=== PATIENT | male | born 1960 | race Two or more races ===

== ENCOUNTER → 2018-02-27 | Outpatient (CLI) | payer OTHER ==
[2018-02-27 16:13] LABS: HCT 42.5 % (39.0-53.0); HGB 14.5 gm/dL (13.0-17.5); MCH 28.7 pg (25.0-35.0); MCHC 34.1 g/dL (31.0-37.0); Mean Platelet Volume 8.8; Platelet Count 160 k/uL (150-450); RBC 5.05 m/uL (4.30-5.90); RDW 13.1 % (11.5-15.5)
[2018-02-27 16:32] LABS: Potassium 4.3 mmol/L (3.5-5.1)
== END | disposition home or self-care (01) ==
LOC: LABPAT 15:39
PROVIDERS: ATTEND Internal Medicine Interventional Cardiology
DX: Z01.812 Encounter for preprocedural laboratory examination (principal); I25.10 Atherosclerotic heart disease of native coronary artery without angina pectoris
CPT/HCPCS: 36415; 80051; 82565; 84520; 85027

== ENCOUNTER 2018-03-14 09:21 | Day surgery (SDC) | payer OTHER ==
[2018-03-05 16:16] VITALS: BMI 27.9
[~2018-03-14 09:21] MED LIST: ALPRAZolam 0.25 MG TAB PO PRN; ALPRAZolam 0.5 MG TAB PO PRN; ASPIRIN 325 MG TAB PO STA; ATORVASTATIN 80 MG TAB PO STA; NITROGLYCERIN SL TABS 0.4 MG TAB SUBLINGUAL PRN; SODIUM CHLORIDE 0.9% 1,000 ML in EMPTY BAG 1 BAG IV ONE
[2018-03-14 09:48] VITALS: PULSE 60; TEMP 97.4
[2018-03-14] MEDS ORDERED: LIDOCAINE 2% INJ 20 MG/ML (20 ML MDV) ONE (10:10)
[2018-03-14] MEDS ORDERED: VERAPAMIL 2.5 MG/ML 2 ML AMP ONE (10:10)
[2018-03-14] MEDS ORDERED: fentaNYL (PF) 50 MCG/ML 2 ML AMP ONE (10:11)
[2018-03-14] MEDS ORDERED: SODIUM CHLORIDE 0.9% 1,000 ML IV ONE (10:20)
[2018-03-14] MEDS ORDERED: fentaNYL (PF) 50 MCG/ML 2 ML AMP IV ONE (10:31)
[2018-03-14] MEDS ORDERED: LIDOCAINE 2% INJ 20 MG/ML SQ ONE (10:36)
[2018-03-14] MEDS ORDERED: VERAPAMIL SYRINGE (5 MG/10 ML) INTRAARTER ONE (10:37)
[2018-03-14] MEDS ORDERED: MIDAZOLAM 2 MG/2 ML VIAL ONE (10:44)
[2018-03-14] MEDS ORDERED: MIDAZOLAM 2 MG/2 ML VIAL IV ONE (10:45)
[2018-03-14] MEDS ORDERED: HEPARIN SODIUM 1,000 UN/ML (10ML VL) ONE (10:46)
[2018-03-14] MEDS ORDERED: HEPARIN SODIUM 1,000 UN/ML (10ML VL) IV ONE (10:47)
[2018-03-14] MEDS ORDERED: IOPAMIDOL-370 125ML BTL INJ ONE (10:54)
[2018-03-14] MEDS ORDERED: RX INFO: IV CONTRAST WAS GIVEN 1 EACH MISC MISCELLANE PRN (11:05)
[2018-03-14] MEDS ORDERED: SODIUM CHLORIDE 0.9% 1,000 ML IV SCH (11:15)
[2018-03-14 12:09] VITALS: RESP 18
--- NOTE | 2018-03-14 14:25 | CC ---
CARDIAC CATHETERIZATION REPORT Mr. Fowler is a 57-year-old male with known history of hypertension, hyperlipidemia, history of coronary artery disease, status post percutaneous revascularization proximal LAD in 2015, who recently had mild chest discomfort and underwent a myocardial perfusion imaging that revealed reversible inferoapical wall defect. In view of that recommendation was made regarding cardiac catheterization. The procedure, risks and complication were discussed with the patient who is in full understanding and agreement. PROCEDURE: Patient was brought to the [facility] in a fasting semi-sedated state after receiving fentanyl and Benadryl. He was draped and prepped in conventional fashion. He had fentanyl and Benadryl and after achieving moderate conscious sedated state, using Xylocaine anesthesia and Seldinger technique, a 6-Chadian sheath was introduced in the right radial artery. Selective right and left angiography performed using 5-Chadian 3.5 bend right and left Saurav catheter. Multiple views of the coronary artery including hemiaxial views were obtained. Following that, catheter and sheath were removed. Hemostasis was obtained with deployment of a TR band. There was no immediate complication. The patient was returned to his room in stable condition. Of note, patient received 5000 units units of intravenous heparin as well as intra-arterial verapamil. FINDINGS: 1. LEFT MAIN: This is a short size vessel, bifurcating into left circumflex, left anterior descending artery, left main coronary artery has no evidence of high-grade stenosis. 2. LEFT ANTERIOR DESCENDING ARTERY: This is a large-sized vessel reaching to the apex. It tapers down in the distal thirds giving rise to a moderately-sized diagonal branch in mid segment. The stented segment and the proximal LAD is patent. There is a 10%-20% plaque proximal toward the ostium. There is mild disease in the mid LAD of 10% - 20% without any evidence of high-grade stenosis. 3. LEFT CIRCUMFLEX: This is a small nondominant vessel giving rise to 2 obtuse marginal branches. The left circumflex has mild intimal disease without any evidence of high-grade stenosis. 4. RIGHT CORONARY ARTERY: This is a large dominant vessel, bifurcating distally into postoperative segment and branches. The right coronary artery PDA reaches towards the inferoapical wall. The right coronary artery throughout its course has diffuse intimal disease of 20% - 30% without any evidence of high-grade stenosis. 5. LEFT VENTRICULOGRAM: Left ventriculogram was not performed. CONCLUSION: 1. No evidence of restenosis in the stented LAD. 2. Mild triple-vessel coronary artery disease. RECOMMENDATION: In view of finding anatomy, I have recommended continue medical therapy with aggressive risk modifications being initiated. Those final recommendation were discussed with the patient and his family who are in full understanding and agreement. Duration of the procedure is 19 minutes. MMCOLLIN / DEBN: [id number] /
--- NOTE | 2018-03-14 14:28 | LTR ---
DATE OF SERVICE: 03/14/2018 RE: Darren Fowler Dear Dr. León; I had the pleasure to perform cardiac catheterization on Mr. Fowler at [facility] on March 14, 2018 and a full copy of the procedure note will be forwarded to you. In brief, he was found to have a patent stent to the LAD with mild diffuse disease. In view of that, I have recommended continue medical therapy with the aggressive risk modifications being initiated. Thank you again for allowing me to participate in this patient's care. Please feel free to call for any questions. Sincerely yours, MD SKIP CamarenaL / DEBN: [id number] /
[2018-03-14 15:22] VITALS: BP 122/76
[2018-03-14] MEDS ORDERED: METOPROLOL TARTRATE 25 MG TAB PO SCH (21:00)
[2018-03-15] MEDS ORDERED: PANTOPRAZOLE 40 MG TABLET PO SCH (07:30)
[2018-03-15] MEDS ORDERED: ATORVASTATIN 80 MG TAB PO SCH (09:00)
[2018-03-15] MEDS ORDERED: amLODIPine 5 MG TAB PO SCH (09:00)
[2018-03-15] MEDS ORDERED: ASPIRIN 81 MG PO SCH (09:00)
[2018-03-15] MEDS ORDERED: CLOPIDOGREL 75 MG TAB PO SCH (09:00)
== END 2018-03-14 15:49 | disposition home or self-care (01) ==
LOC: CATHCVL 09:21
PROVIDERS: ATTEND Internal Medicine Interventional Cardiology
DX: I25.10 Atherosclerotic heart disease of native coronary artery without angina pectoris (principal); I10 Essential (primary) hypertension; E78.2 Mixed hyperlipidemia; Z95.5 Presence of coronary angioplasty implant and graft; Z79.02 Long term (current) use of antithrombotics/antiplatelets; Z79.82 Long term (current) use of aspirin; Z79.899 Other long term (current) drug therapy
CPT/HCPCS: 93454; C1894; C1769; J2001; J2250; J3010; J1644; Q9967

== ENCOUNTER 2023-10-28 17:00 | Observation (INO) | payer MEDICARE, OTHER ==
[2023-10-28 18:19] LABS: Basophils % (A) 1 %; Eosinophils # (A) 0.1 k/uL (0-0.7); Eosinophils % (A) 2 %; HCT 44.5 % (39.0-53.0); HGB 15.1 gm/dL (13.0-17.5); Lymphocytes # (A) 1.3 k/uL (1.0-4.8); Lymphocytes % (A) 24 %; MCH 29.5 pg (25.0-35.0); MCHC 33.9 g/dL (31.0-37.0); MCV 87.1 fL (80.0-100.0); Monocytes # (A) 0.4 k/uL (0-1.0); Monocytes % (A) 7 %; Neutrophils # (A) 3.5 k/uL (1.3-7.7); Neutrophils % (A) 65 %; Platelet Count 145 k/uL (150-450); RBC 5.11 m/uL (4.30-5.90); RDW 13.1 % (11.5-15.5); WBC 5.4 k/uL (3.8-10.6)
[2023-10-28 18:29] LABS: Partial Thromboplastin Time 25.6 sec (22.0-30.0); Prothrombin Time 10.8 sec (10.0-12.5)
[2023-10-28 18:31] LABS: ALT 25 U/L (4-49); AST 33 U/L (17-59); African American GFR (CKD) >90 (>60 ml/min/1.73 sqM); Albumin 4.5 g/dL (3.5-5.0); Alkaline Phosphatase 74 U/L (38-126); Anion Gap 9 mmol/L; Blood Urea Nitrogen 24 mg/dL (9-20); Calcium 9.2 mg/dL (8.4-10.2); Carbon Dioxide 25 mmol/L (22-30); Chloride 104 mmol/L (98-107); Glucose 88 mg/dL (74-99); Non-African American GFR(CKD) 79 (>60 ml/min/1.73 sqM); Potassium 4.7 mmol/L (3.5-5.1); Sodium 138 mmol/L (137-145); Total Bilirubin 0.9 mg/dL (0.2-1.3); Total Protein 7.1 g/dL (6.3-8.2)
--- NOTE | 2023-10-28 19:16 | XR ---
EXAMINATION TYPE: XR chest 2V DATE OF EXAM: 10/28/2023 5:17 PM CLINICAL INDICATION:Male, 63 years old with history of Chest Pain; [facility] COMPARISON: None TECHNIQUE: XR chest 2V. Frontal and lateral views of the chest.. FINDINGS: Lines/Tubes/Devices: No indwelling lines are seen. Heart/mediastinum: Heart size is normal. Aorta is tortuous. Pulmonary vascularity: Not increased, Lungs/Pleura: There is no evidence of pleural effusion, focal consolidation, or pneumothorax. Musculoskeletal: No acute osseous abnormality demonstrated in the limits of the exam. Multilevel deg enerative disc disease changes seen throughout the spine. Other findings: None. IMPRESSION: No acute cardiopulmonary abnormality.
--- NOTE | 2023-10-28 19:43 | ED ---
General Adult HPI - General Chief complaint: Chest Pain Stated complaint: CHEST PAINS Time Seen by Provider: 10/28/23 19:41 Source: patient Mode of arrival: wheelchair Limitations: no limitations - History of Present Illness Initial comments: Patient presents to the ED with his for evaluation. Patient states that he had just finished shoveling the snow and come inside at about 3 PM today when he developed sharp central chest pain similar to the chest pain he had when he had an ND back in 2014. Patient denies having any associated symptoms. Patient states that his pain lasted for a couple of hours after onset, but has now completely resolved. Patient also states that he had a bout of chest pain at about noon today and once about a week ago as well. Patient denies trauma or injury, fever or chills, headache, focal numbness/weakness/neuro deficit, radiation of his pain, neck/arm/jaw/back pain, dyspnea, cough or cold symptoms, palpitations, dizziness, nausea/vomiting/diaphoresis, abdominal pain, bloody or melanotic stool, dysuria or urinary symptoms, decreased urine output, leg or calf swelling or pain, or any other symptoms or complaints. - Related Data Home Medications Medication Instructions Recorded Confirmed Aspirin 81 mg PO DAILY 03/05/18 03/14/18 Atorvastatin [Lipitor] 80 mg PO DAILY 03/05/18 03/14/18 Clopidogrel [Plavix] 75 mg PO DAILY 03/05/18 03/05/18 Esomeprazole Magnesium [NexIUM] 20 mg PO DAILY 03/05/18 03/05/18 Metoprolol Tartrate [Lopressor] 25 mg PO BID 03/05/18 03/05/18 amLODIPine [Norvasc] 5 mg PO DAILY 03/05/18 03/05/18 Allergies Allergy/AdvReac Type Severity Reaction Status Date / Time No Known Allergies Allergy Verified 03/05/18 16:08 Review of Systems ROS Statement: Those systems with pertinent positive or pertinent negative responses have been documented in the HPI. ROS Other: All systems not noted in ROS Statement are negative. Past Medical History Past Medical History: Chest Pain / Angina, GERD/Reflux, Hearing Disorder / Deafness, Myocardial Infarction (ND) Additional Past Medical History / Comment(s): hiatal hernia,deaf rt ear Last Myocardial Infarction Date:: 2014 History of Any Multi-Drug Resistant Organisms: None Reported Past Surgical History: Heart Catheterization With Stent Additional Past Surgical History / Comment(s): heart stent Past Anesthesia/Blood Transfusion Reactions: Motion Sickness Additional Past Anesthesia/Blood Transfusion Reaction / Comment(s): no hx general anesthesia,vertigo Date of Last Stent Placement:: 2014 Past Psychological History: No Psychological Hx Reported Smoking Status: Former smoker Past Alcohol Use History: None Reported Past Drug Use History: None Reported - Past Family History Father Additional Family Medical History / Comment(s): hiatal hernia General Exam Limitations: no limitations General appearance: alert, in no apparent distress Head exam: Present: normocephalic Eye exam: Present: normal appearance ENT exam: Present: mucous membranes moist Neck exam: Present: other (Trachea is in midline) Respiratory exam: Present: normal lung sounds bilaterally. Absent: respiratory distress, wheezes, rales, rhonchi, stridor, chest wall tenderness Cardiovascular Exam: Present: normal rhythm, bradycardia, normal heart sounds, other (Normal radial pulses bilaterally) GI/Abdominal exam: Present: soft. Absent: distended, tenderness, guarding Extremities exam: Present: other (Negative Homans sign bilaterally). Absent: tenderness, pedal edema, calf tenderness Neurological exam: Present: alert, oriented X3 Psychiatric exam: Present: normal affect Skin exam: Present: warm, dry, normal color Course Vital Signs 10/28/23 17:03 Temperature 97.8 F Pulse Rate 55 L Respiratory 18 Rate Blood Pressure 151/88 O2 Sat by Pulse 96 Oximetry - Reevaluation(s) Reevaluation #1: 10/28/23 19:57 Patient remains alert and breathing comfortably. Patient denies development of any new symptoms while in the ED, and he continues to deny having any chest pain. Patient and are aware the patient's test results, and they both agree with hospital admission at this time. 10/28/23 29:59 Case, H&P, test results and ED management thus far were discussed with ESSENCE Luis. He accepts hospital admission on behalf of himself and his supervising physician. He agrees with cardiology consultation. He has no further recommendations at this time. EKG Findings - EKG Comments: EKG Findings:: ED physician interpretation (interpreted by me): Sinus bradycardia, ventricular rate of 48 bpm, no ectopy, normal MS and QRS intervals, normal QT interval, normal axis, no ST or T-wave abnormality Medical Decision Making - Medical Decision Making Was pt. sent in by a medical professional or institution (, ESSENCE, JEWEL SETTER, urgent ca re, hospital, or assisted...) When possible be specific @ -No Did you speak to anyone other than the patient for history (EMS, parent, family, police, friend...)? What history was obtained from this source @ -No Did you review nursing and triage notes (agree or disagree)? Why? @ -I reviewed and agree with nursing and triage notes Were old charts reviewed (outside hosp., previous admission, EMS record, old EKG, old radiological studies, urgent care reports/EKG's, assisted records)? Report findings @ -No old charts were reviewed Differential Diagnosis (chest pain, altered mental status, abdominal pain women, abdominal pain men, vaginal bleeding, weakness, fever, dyspnea, syncope, headache, dizziness, GI bleed, back pain, seizure, CVA, palpatations, mental health, musculoskeletal)? @ -Differential Chest Pain: Stable Angina, Unstable Angina, STEMI, NSTEMI, Pneumothorax, Musculoskeletal, Esophageal Spasm, GERD, chest wall pain, pleural effusion, this is not meant to be an all-inclusive list. EKG interpreted by me (3pts min.). @ -As above X-rays interpreted by me (1pt min.). @ -Chest x-ray shows no acute abnormality. I agree with the radiologist's interpretation as above. CT interpreted by me (1pt min.). @ -None done U/S interpreted by me (1pt. min.). @ -None done What testing was considered but not performed or refused? (CT, X-rays, U/S, labs)? Why? @ -None What meds were considered but not given or refused? Why? @ -None Did you discuss the management of the patient with other professionals (professionals i.e. , ESSENCE, JEWEL SETTER, lab, RT, psych nurse, social science analyst, oil field equipment mechanic supervisor, teacher, wildlife officer, family service caseworker)? Give summary @ -As above.] Was smoking cessation discussed for >3mins.? @ -No Was critical care preformed (if so, how long)? @ -No Were there social determinants of health that impacted care today? How? (Ho melessness, low income, unemployed, alcoholism, drug addiction, transportation, low edu. Level, literacy, decrease access to med. care, snf, rehab)? @ -No Was there de-escalation of care discussed even if they declined (Discuss DNR or withdrawal of care, Hospice)? DNR status @ -No What co-morbidities impacted this encounter? (DM, HTN, Smoking, COPD, CAD, Cancer, CVA, ARF, Chemo, Hep., AIDS, mental health diagnosis, sleep apnea, morbid obesity)? @ -CAD Was patient admitted / discharged? Hospital course, mention meds given and route, prescriptions, significant lab abnormalities, going to OR and other pertinent info. @ -Patient's initial troponin is negative. Patient's EKG shows sinus bradycardia without any acute ischemic findings. Patient is on metoprolol, which likely explains his sinus bradycardia. Patient's chest x-ray and the rest of the patient's labs are fairly unremarkable. Given the patient's history of CAD/ND, will admit the patient to the hospital for serial troponins, cardiac monitoring and cardiology consultation. ESSENCE Luis has accepted hospital admission on behalf of himself and his supervising physician. Undiagnosed new problem with uncertain prognosis? @ -No Drug Therapy requiring intensive monitoring for toxicity (Heparin, Nitro, Insulin, Cardizem)? @ -No Were any procedures done? @ -No Diagnosis/symptom? @ -Chest pain Acute, or Chronic, or Acute on Chronic? @ -Acute Uncomplicated (without systemic symptoms) or Complicated (systemic symptoms)? @ -default Side effects of treatment? @ -No Exacerbation, Progression, or Severe Exacerbation? @ -No Poses a threat to life or bodily function? How? (Chest pain, USA, ND, pneumonia, PE, COPD, DKA, ARF, appy, cholecystitis, CVA, Diverticulitis, Homicidal, Suicidal, threat to staff... and all critical care pts) @ -No - Lab Data Result diagrams: 10/28/23 17:35 10/28/23 17:35 Lab Results 10/28/23 10/28/23 10/28/23 Range/Units 17:35 17:35 17:35 WBC 5.4 (3.8-10.6) k/uL RBC 5.11 (4.30-5.90) m/uL Hgb 15.1 (13.0-17.5) gm/dL Hct 44.5 (39.0-53.0) % MCV 87.1 (80.0-100.0) fL MCH 29.5 (25.0-35.0) pg MCHC 33.9 (31.0-37.0) g/dL RDW 13.1 (11.5-15.5) % Plt Count 145 L (150-450) k/uL MPV 9.0 Neutrophils % 65 % Lymphocytes % 24 % Monocytes % 7 % Eosinophils % 2 % Basophils % 1 % Neutrophils # 3.5 (1.3-7.7) k/uL Lymphocytes # 1.3 (1.0-4.8) k/uL Monocytes # 0.4 (0-1.0) k/uL Eosinophils # 0.1 (0-0.7) k/uL Basophils # 0.0 (0-0.2) k/uL PT 10.8 (10.0-12.5) sec INR 1.0 (<1.2) APTT 25.6 (22.0-30.0) sec Sodium 138 (137-145) mmol/L Potassium 4.7 (3.5-5.1) mmol/L Chloride 104 (98-107) mmol/L Carbon Dioxide 25 (22-30) mmol/L Anion Gap 9 mmol/L BUN 24 H (9-20) mg/dL Creatinine 1.00 (0.66-1.25) mg/dL Est GFR (CKD-EPI)AfAm >90 (>60 ml/min/1.73 sqM) Est GFR (CKD-EPI)NonAf 79 (>60 ml/min/1.73 sqM) Glucose 88 (74-99) mg/dL Calcium 9.2 (8.4-10.2) mg/dL Magnesium 2.0 (1.6-2.3) mg/dL Total Bilirubin 0.9 (0.2-1.3) mg/dL AST 33 (17-59) U/L ALT 25 (4-49) U/L Alkaline Phosphatase 74 (38-126) U/L Troponin I (0.000-0.034) ng/mL NT-Pro-B Natriuret Pep pg/mL Total Protein 7.1 (6.3-8.2) g/dL Albumin 4.5 (3.5-5.0) g/dL 10/28/23 10/28/23 Range/Units 17:35 17:42 WBC (3.8-10.6) k/uL RBC (4.30-5.90) m/uL Hgb (13.0-17.5) gm/dL Hct (39.0-53.0) % MCV (80.0-100.0) fL MCH (25.0-35.0) pg MCHC (31.0-37.0) g/dL RDW (11.5-15.5) % Plt Count (150-450) k/uL MPV Neutrophils % % Lymphocytes % % Monocytes % % Eosinophils % % Basophils % % Neutrophils # (1.3-7.7) k/uL Lymphocytes # (1.0-4.8) k/uL Monocytes # (0-1.0) k/uL Eosinophils # (0-0.7) k/uL Basophils # (0-0.2) k/uL PT (10.0-12.5) sec INR (<1.2) APTT (22.0-30.0) sec Sodium (137-145) mmol/L Potassium (3.5-5.1) mmol/L Chloride (98-107) mmol/L Carbon Dioxide (22-30) mmol/L Anion Gap mmol/L BUN (9-20) mg/dL Creatinine (0.66-1.25) mg/dL Est GFR (CKD-EPI)AfAm (>60 ml/min/1.73 sqM) Est GFR (CKD-EPI)NonAf (>60 ml/min/1.73 sqM) Glucose (74-99) mg/dL Calcium (8.4-10.2) mg/dL Magnesium (1.6-2.3) mg/dL Total Bilirubin (0.2-1.3) mg/dL AST (17-59) U/L ALT (4-49) U/L Alkaline Phosphatase (38-126) U/L Troponin I <0.012 (0.000-0.034) ng/mL NT-Pro-B Natriuret Pep 151 pg/mL Total Protein (6.3-8.2) g/dL Albumin (3.5-5.0) g/dL - Radiology Data Chest x-ray: No acute cardiopulmonary abnormality. Disposition Clinical Impression: Chest pain, Sinus bradycardia Disposition: ADMITTED IP TO THIS HOSP Condition: Stable Is patient prescribed a controlled substance at d/c from ED?: No Referrals: Umesh Trujillo MD [Primary Care Provider] - 1-2 days Time of Disposition: 19:59
[2023-10-28] MEDS ORDERED: ASPIRIN 81 MG PO STA (19:53)
[2023-10-28] MEDS ORDERED: NALOXONE 0.4 MG/ML 1 ML VIAL IV PRN (19:59)
[2023-10-29] MEDS: METOPROLOL TARTRATE 25 MG TAB PO SCH ×2 (08:22→20:57)
[2023-10-29] MEDS: PANTOPRAZOLE 40 MG TABLET PO SCH (08:22)
[2023-10-29] MEDS: amLODIPine 5 MG TAB PO SCH (08:22)
--- NOTE | 2023-10-29 10:57 | P.HPIM ---
History of Present Illness This is a pleasant 63 years old male with past medical history of coronary artery disease status post stents in 2014 and he follows up with Dr. Mendoza, ex smoker many years ago area Presents because of 2 episodes of chest pain that lasts for a few minutes in the middle of his chest nonradiating fat like sharp 6/10 happened yesterday not necessarily related to shelving this no. Currently his chest pain is 0/10 in his chest pain-free with no other complaints. He had similar episode about 1 week ago. But currently with no chest pain No change in urine or bowel habits. No fever. No chills. No dizziness weakness numbness. Currently denies smoking alcohol or illicit drugs. CBC is unremarkable, vitals are stable INR within the reference range Liver enzymes and BMP is unremarkable Troponin 3 are negative less than 0.012. ProBNP is 151 EKG shows sinus bradycardia at [address]-T changes and QTC 409 Chest x-ray: No acute process. Review of Systems Review of systems CONSTITUTIONAL: No fever, no malaise, no fatigue. HEENT: No recent visual problems or hearing problems. Denied any sore throat. CARDIOVASCULAR: No orthopnea, PND, no palpitations, no syncope. PULMONARY: No shortness of breath, no cough, no hemoptysis. GASTROINTESTINAL: No diarrhea, no nausea, no vomiting, no abdominal pain. Normoactive bowel sounds. NEUROLOGICAL: No headaches, no weakness, no numbness. HEMATOLOGICAL: Denies any bleeding or petechiae. GENITOURINARY: Denies any burning micturition, frequency, or urgency. MUSCULOSKELETAL/RHEUMATOLOGICAL: Denies any joint pain, swelling, or any muscle pain. ENDOCRINE: Denies any polyuria or polydipsia. Past Medical History Past Medical History: Chest Pain / Angina, GERD/Reflux, Hearing Disorder / Deafness, Myocardial Infarction (PR) Additional Past Medical History / Comment(s): hiatal hernia,deaf rt ear Last Myocardial Infarction Date:: 2014 History of Any Multi-Drug Resistant Organisms: None Reported Past Surgical History: Heart Catheterization With Stent Additional Past Surgical History / Comment(s): heart stent Past Anesthesia/Blood Transfusion Reactions: Motion Sickness Additional Past Anesthesia/Blood Transfusion Reaction / Comment(s): no hx general anesthesia,vertigo Date of Last Stent Placement:: 2014 Past Psychological History: No Psychological Hx Reported Smoking Status: Former smoker Past Alcohol Use History: None Reported Past Drug Use History: None Reported - Past Family History Father Additional Family Medical History / Comment(s): hiatal hernia Medications and Allergies Home Medications Medication Instructions Recorded Confirmed Type Aspirin 81 mg PO DAILY 03/05/18 10/28/23 History Atorvastatin [Lipitor] 80 mg PO HS 03/05/18 10/28/23 History Esomeprazole Magnesium [NexIUM] 20 mg PO BID 03/05/18 10/28/23 History Metoprolol Tartrate [Lopressor] 25 mg PO BID 03/05/18 10/28/23 History amLODIPine [Norvasc] 5 mg PO DAILY 03/05/18 10/28/23 History Tamsulosin [Flomax] 0.4 mg PO HS 10/28/23 10/28/23 History Allergies Allergy/AdvReac Type Severity Reaction Status Date / Time No Known Allergies Allergy Verified 10/28/23 20:41 Physical Exam Vitals: Vital Signs Temp Pulse Resp BP Pulse Ox 10/29/23 08:22 75 18 128/89 95 10/29/23 06:23 52 L 18 128/91 95 10/29/23 03:08 98 F 53 L 16 120/81 97 10/28/23 23:41 97.8 F 59 L 16 139/89 95 10/28/23 22:00 65 18 132/97 96 10/28/23 17:03 97.8 F 55 L 18 151/88 96 Intake and Output 10/28/23 10/29/23 10/29/23 22:59 06:59 14:59 Other: Weight 102.058 kg GENERAL: The patient is alert and oriented x3, not in any acute distress. Well developed, well nourished. HEENT: Pupils are round and equally reacting to light. EOMI. No scleral icterus. No conjunctival pallor. Normocephalic, atraumatic. No pharyngeal erythema. No thyromegaly. CARDIOVASCULAR: S1 and S2 present. No murmurs, rubs, or gallops. PULMONARY: Chest is clear to auscultation, no wheezing , no crackles. ABDOMEN: Soft, nontender, nondistended, normoactive bowel sounds. No palpable organomegaly. MUSCULOSKELETAL: No joint swelling or deformity. EXTREMITIES: No cyanosis, clubbing, or pedal edema. NEUROLOGICAL: Gross neurological examination did not reveal any focal deficits. SKIN: No rashes. no petechiae. Results CBC & Chem 7: 10/28/23 17:35 10/28/23 17:35 Labs: Abnormal Lab Results - Last 24 Hours (Table) 10/28/23 10/28/23 Range/Units 17:35 17:35 Plt Count 145 L (150-450) k/uL BUN 24 H (9-20) mg/dL Assessment and Plan Assessment: chest pain, rule out cardiac causes. Most likely musculoskeletal. Currently completely resolved History of coronary artery disease status post stent continue with aspirin Hyperlipidemia Hypertension History of asthma, no acute process History of prostate lung cancer per records Plan: Continue with telemetry Cardiology consult DVT prophylaxis heparin GI prophylaxis Pepcid Prognosis is guarded
--- NOTE | 2023-10-29 11:22 | P.CRDCN ---
History of Present Illness Consult date: 10/29/23 Chief complaint: CP History of present illness: The patient is a pleasant 63-year-old gentleman with coronary artery disease and prior stenting of the LAD as well as hypertension and dyslipidemia. The patient sees Dr. Hart on a regular basis. He presented to the emergency department complaining of chest discomfort. He had 2 episodes of chest discomfort within the last few weeks with the first episode was about a week ago when he was and no blowing any physical activity and the discomfort was admitted of the chest as a dull kind of discomfort was he was also at home and after mild physical activity sided effusion discomfort in the chest with the same characteristic as dull kind of discomfort in the middle of the chest was no radiation and no cystitis symptoms except that it lasted for about 2 hours and by the end it was a kind of pressure on the chest. Currently he is chest pain-free. He underwent further workup including an EKG which showed sinus mechanism significant ST or T-wave abnormalities and symmetrical showed mild early repolarization and cardiac enzymes came in to be unremarkable and chest x-ray did not show any acute abnormalities. Currently he is stable hemodynamically and also he is asymptomatic. He underwent heart catheterization in 2016 showing patent stent in the LAD with [id number] disease involving the RCA and LCx. Examination is remarkable for the patient is not in any pain or distress with stable vital signs and regular rate and rhythm and clear breathing sounds bilaterally and no lower extremities edema and the abdomen is soft and nontender Assessment Chest discomfort, recurrent, concerning for angina Hypertension Dyslipidemia CAD with previous stenting of the LAD Plan I advised proceeding with coronary angiogram Add isosorbide mononitrate to the current medical regimen Follow-up with the patient Past Medical History Past Medical History: Chest Pain / Angina, GERD/Reflux, Hearing Disorder / Deafness, Myocardial Infarction ([place]) Additional Past Medical History / Comment(s): hiatal hernia,deaf rt ear Last Myocardial Infarction Date:: 2014 History of Any Multi-Drug Resistant Organisms: None Reported Past Surgical History: Heart Catheterization With Stent Additional Past Surgical History / Comment(s): heart stent Past Anesthesia/Blood Transfusion Reactions: Motion Sickness Additional Past Anesthesia/Blood Transfusion Reaction / Comment(s): no hx general anesthesia,vertigo Date of Last Stent Placement:: 2014 Past Psychological History: No Psychological Hx Reported Smoking Status: Former smoker Past Alcohol Use History: None Reported Past Drug Use History: None Reported - Past Family History Father Additional Family Medical History / Comment(s): hiatal hernia Medications and Allergies Home Medications Medication Instructions Recorded Confirmed Type Aspirin 81 mg PO DAILY 03/05/18 10/28/23 History Atorvastatin [Lipitor] 80 mg PO HS 03/05/18 10/28/23 History Esomeprazole Magnesium [NexIUM] 20 mg PO BID 03/05/18 10/28/23 History Metoprolol Tartrate [Lopressor] 25 mg PO BID 03/05/18 10/28/23 History amLODIPine [Norvasc] 5 mg PO DAILY 03/05/18 10/28/23 History Tamsulosin [Flomax] 0.4 mg PO HS 10/28/23 10/28/23 History Allergies Allergy/AdvReac Type Severity Reaction Status Date / Time No Known Allergies Allergy Verified 10/28/23 20:41 Physical Exam Vitals: Vital Signs Temp Pulse Resp BP Pulse Ox 10/29/23 08:22 75 18 128/89 95 10/29/23 06:23 52 L 18 128/91 95 10/29/23 03:08 98 F 53 L 16 120/81 97 10/28/23 23:41 97.8 F 59 L 16 139/89 95 10/28/23 22:00 65 18 132/97 96 10/28/23 17:03 97.8 F 55 L 18 151/88 96 Intake and Output 10/28/23 10/29/23 10/29/23 22:59 06:59 14:59 Other: Weight 102.058 kg Results 10/28/23 17:35 10/28/23 17:35 Cardiac Enzymes 10/28/23 10/28/23 10/28/23 Range/Units 17:35 17:35 21:19 AST 33 (17-59) U/L Troponin I <0.012 <0.012 (0.000-0.034) ng/mL 10/29/23 Range/Units 00:46 AST (17-59) U/L Troponin I <0.012 (0.000-0.034) ng/mL Coagulation 10/28/23 Range/Units 17:35 PT 10.8 (10.0-12.5) sec APTT 25.6 (22.0-30.0) sec CBC 01/13/24 Range/Units 17:35 WBC 5.4 (3.8-10.6) k/uL RBC 5.11 (4.30-5.90) m/uL Hgb 15.1 (13.0-17.5) gm/dL Hct 44.5 (39.0-53.0) % Plt Count 145 L (150-450) k/uL Comprehensive Metabolic Panel 10/28/23 Range/Units 17:35 Sodium 138 (137-145) mmol/L Potassium 4.7 (3.5-5.1) mmol/L Chloride 104 (98-107) mmol/L Carbon Dioxide 25 (22-30) mmol/L BUN 24 H (9-20) mg/dL Creatinine 1.00 (0.66-1.25) mg/dL Glucose 88 (74-99) mg/dL Calcium 9.2 (8.4-10.2) mg/dL AST 33 (17-59) U/L ALT 25 (4-49) U/L Alkaline Phosphatase 74 (38-126) U/L Total Protein 7.1 (6.3-8.2) g/dL Albumin 4.5 (3.5-5.0) g/dL Current Medications Generic Name Dose Route Start Last Admin Trade Name Freq PRN Reason Stop Dose Admin Amlodipine Besylate 5 mg 10/29/23 09:00 10/29/23 08:22 Amlodipine 5 Mg Tab PO 5 mg DAILY AMY Administration Atorvastatin Calcium 80 mg 10/29/23 21:00 Atorvastatin 80 Mg Tab PO HS [facility] Isosorbide Mononitrate 30 mg 10/30/23 09:00 Isosorbide Mononitrate Er 30 Mg Tab.Er.24h PO DAILY [facility] Metoprolol Tartrate 25 mg 10/29/23 09:00 10/29/23 08:22 Metoprolol Tartrate 25 Mg Tab PO 25 mg BID AMY Administration Naloxone HCl 0.2 mg 10/28/23 19:59 Naloxone 0.4 Mg/Ml 1 Ml Vial IV Q2M PRN Opioid Reversal Pantoprazole Sodium 40 mg 10/29/23 07:30 10/29/23 08:22 Pantoprazole 40 Mg Tablet PO 40 mg [id number] AYM Administration Tamsulosin HCl 0.4 mg 10/29/23 21:00 Tamsulosin 0.4 Mg Cap.Er.24h PO HS [facility] Intake and Output 10/28/23 10/29/23 10/29/23 22:59 06:59 14:59 Other: Weight 102.058 kg 10/28/23 17:35 10/28/23 17:35
[2023-10-29 11:27] LABS: Basophils % (A) 1 %; Eosinophils # (A) 0.1 k/uL (0-0.7); Eosinophils % (A) 3 %; HCT 44.9 % (39.0-53.0); Lymphocytes # (A) 1.2 k/uL (1.0-4.8); Lymphocytes % (A) 28 %; MCH 28.9 pg (25.0-35.0); MCHC 33.4 g/dL (31.0-37.0); MCV 86.6 fL (80.0-100.0); Mean Platelet Volume 9.4; Monocytes # (A) 0.3 k/uL (0-1.0); Monocytes % (A) 7 %; Neutrophils # (A) 2.6 k/uL (1.3-7.7); Neutrophils % (A) 61 %; Platelet Count 158 k/uL (150-450); RBC 5.18 m/uL (4.30-5.90); WBC 4.2 k/uL (3.8-10.6)
[2023-10-29 11:59] LABS: ALT 25 U/L (4-49); AST 30 U/L (17-59); African American GFR (CKD) 88 (>60 ml/min/1.73 sqM); Albumin 4.1 g/dL (3.5-5.0); Albumin/Globulin Ratio 1.6; Alkaline Phosphatase 69 U/L (38-126); Anion Gap 8 mmol/L; Blood Urea Nitrogen 22 mg/dL (9-20); Carbon Dioxide 26 mmol/L (22-30); Chloride 106 mmol/L (98-107); Globulin 2.6 g/dL; Glucose 102 mg/dL (74-99); Non-African American GFR(CKD) 76 (>60 ml/min/1.73 sqM); Potassium 4.6 mmol/L (3.5-5.1); Sodium 140 mmol/L (137-145); Total Bilirubin 1.1 mg/dL (0.2-1.3); Total Protein 6.7 g/dL (6.3-8.2)
[2023-10-29] MEDS ORDERED: ATORVASTATIN 80 MG TAB PO SCH (21:00)
[2023-10-29] MEDS ORDERED: TAMSULOSIN 0.4 MG CAP.ER.24H PO SCH (21:00)
[2023-10-30] MEDS ORDERED: ALPRAZolam 0.5 MG TAB PO PRN (08:01)
[2023-10-30] MEDS ORDERED: ATORVASTATIN 80 MG TAB PO STA (08:01)
[2023-10-30] MEDS ORDERED: ALPRAZolam 0.25 MG TAB PO PRN (08:01)
[2023-10-30] MEDS ORDERED: ASPIRIN 325 MG TAB PO STA (08:01)
[2023-10-30] MEDS ORDERED: NITROGLYCERIN SL TABS 0.4 MG TAB SUBLINGUAL PRN (08:01)
[2023-10-30] MEDS ORDERED: ISOSORBIDE MONONITRATE ER 30 MG TAB.ER.24H PO SCH (09:00)
[2023-10-30] MEDS ORDERED: HEPARIN SODIUM,PORCINE 5,000 UNIT/ML 1 ML VIAL SQ SCH (09:00)
[2023-10-30] MEDS: METOPROLOL TARTRATE 25 MG TAB PO SCH (09:43)
[2023-10-30] MEDS: PANTOPRAZOLE 40 MG TABLET PO SCH (09:44)
[2023-10-30] MEDS: amLODIPine 5 MG TAB PO SCH (09:44)
[2023-10-30] MEDS: SODIUM CHLORIDE 0.9% 1,000 ML in EMPTY BAG 1 BAG IV SCH ×2 (09:45→17:02)
[2023-10-30 10:58] LABS: Glucose,Whole Blood 99 mg/dL (70-110)
[2023-10-30] MEDS ORDERED: IV FLUID CONTINUATION 1,000 ML IV ONE (12:10)
[2023-10-30] MEDS ORDERED: fentaNYL (PF) 50 MCG/ML 2 ML AMP ONE (12:10)
[2023-10-30] MEDS ORDERED: LIDOCAINE 1% INJ 10MG/ML (30 ML VIAL-PF) SQ ONE ×2 (12:21→12:22)
[2023-10-30] MEDS ORDERED: fentaNYL (PF) 50 MCG/1 ML VIAL IVP ONE (12:22)
[2023-10-30] MEDS ORDERED: HEPARIN SODIUM 1,000 UN/ML (10ML VL) IV ONE (12:27)
[2023-10-30] MEDS ORDERED: VERAPAMIL SYRINGE (5 MG/10 ML) INTRAARTER ONE (12:27)
[2023-10-30] MEDS ORDERED: IOPAMIDOL-370 100ML BTL INJ ONE (12:32)
[2023-10-30] MEDS ORDERED: RX INFO: IV CONTRAST WAS GIVEN 1 EACH MISC MISCELLANE PRN (12:46)
--- NOTE | 2023-10-30 12:51 | P.CARDCATH ---
Date of Procedure: 10/30/23 Description of Procedure: Cardiac Catheterization: The patient is a 63-year-old male with a known history of CAD, post stenting of the LAD who presented with symptoms of chest discomfort with no associated EKG changes or abnormal enzymes. He was evaluated by Dr. Mendoza. Recommendations were made regarding cardiac catheterization, the risks and the complications were discussed with the patient who is in full understanding and agreement. Procedure Description: Patient was brought to [facility] in fasting semi-sedated state after receiving Fentanyl and Benadryl achieiving moderate conscious sedated state. Using Xylocaine Anesthesia and modified Seldinger technique, a 6-Iranian sheath was introduced in the right radial artery . Subsequently, selective coronary angiography was performed using a 5-Iranian 3.5 bend Saurav catheter. Multiple views of the coronary artery including hemiaxial views were obtained. The right Saurav catheter was used to cross the aortic valve and LVEDP was calculated. Following that, catheter and sheath were removed. Hemostasis was obtained with deployment of vascular band . There was no immediate complication. Patient was returned to room in stable condition. Of note, the patient received a total of 5000 units of intravenous heparin as well as intra-arterial verapamil. Findings: Left main: This is a short sized vessel bifurcating into LAD and left circumflex, left main has no obstructive disease. LAD: This is a large size vessel, reaching to the apex, giving rise to 2 diagonal branch, the second one is large in caliber. The proximal segment of the LAD has a stent, patent with no evidence of in-stent restenosis. The mid LAD has a 30-40% plaque no evidence of significant disease Left circumflex: This is a nondominant large size vessel giving rise to 2 obtuse marginal branch. The mid left circumflex has mild disease of 10-20% without any high-grade stenosis RCA: This is a large dominant vessel, bifurcating distally into PDA and PLV. The right coronary artery in the mid and distal segment has intimal disease of 30-40% without any high-grade stenosis Left Ventriculogram: Not performed Hemodynamics: There was no gradient across the aortic valve, LVEDP was 5-8 mmHg Conclusion: 1. Patent stent in the proximal LAD with no evidence of in-stent restenosis 2. Mild disease in the LAD, left circumflex and RCA 3. Right dominance 4. Low LVEDP Recommendations: I have recommended to continue medical therapy, I see no evidence of significant obstructive disease. The findings and the recommendations were discussed with the patient and the family and they were in full understanding and agreement. Duration of sedation is 14 minutes.
[2023-10-30] MEDS ORDERED: SODIUM CHLORIDE 0.9% 1,000 ML IV SCH (13:00)
[2023-10-30 14:00] VITALS: RESP 16; TEMP 97.7
--- NOTE | 2023-10-30 17:55 | CA ---
Transthoracic Echo Report Name: Darren Fowler Age: 63 Gender: M : 1960 Exam Date: 10/30/2023 12:14 Exam Location: [place] Ht (in): 73 Wt (lb): 225 Ordering Physician: Kaden Mendoza MD ([id number]) Attending/Referring Phys: Lining Machine Tender Melvin Lim Procedure CPT: Indications: CP Cardiac Hx: Technical Quality: Technically difficult study Contrast 1: Definity Total Dose (mL): 2 Contrast 2: Total Dose (mL): MEASUREMENTS (Male / Female) Normal Values 2D ECHO LV Diastolic Diameter PLAX 4.7 cm 4.2 - 5.9 / 3.9 - 5.3 cm LV Systolic Diameter PLAX 2.7 cm IVS Diastolic Thickness 1.1 cm 0.6 - 1.0 / 0.6 - 0.9 cm LVPW Diastolic Thickness 1.1 cm 0.6 - 1.0 / 0.6 - 0.9 cm LV Relative Wall Thickness 0.5 RV Internal Dim ED PLAX 3.4 cm LVOT Diameter 2.0 cm Aortic Root Diameter 3.5 cm LA Systolic Diameter LX 2.2 cm 3.0 - 4.0 / 2.7 - 3.8 cm LV Diastolic Volume MOD BP 49.4 cm??? 67 - 155 / 56 - 104 cm??? LV Systolic Volume MOD BP 18.2 cm??? 22 - 58 / 19 - 49 cm??? LV Ejection Fraction MOD BP 63.2 % >= 55 % LV Cardiac Index MOD BP 647.2 cm???/min???m??? LV Diastolic Volume MOD 4C 67.7 cm??? LV Systolic Volume MOD 4C 25.5 cm??? LV Ejection Fraction MOD 4C 62.3 % LV Cardiac Index MOD 4C 874.7 cm???/min???m??? LV Diastolic Length 4C 7.4 cm LV Systolic Length 4C 6.1 cm LV Diastolic Volume MOD 2C 31.8 cm??? LV Systolic Volume MOD 2C 13.4 cm??? LV Ejection Fraction MOD 2C 57.9 % LV Cardiac Index MOD 2C 382.0 cm???/min???m??? LV Diastolic Length 2C 6.5 cm LV Systolic Length 2C 6.0 cm LA Volume 35.8 cm??? 18 - 58 / 22 - 52 cm??? LA Volume Index 15.5 cm???/m??? 16 - 28 cm???/m??? DOPPLER AV Peak Velocity 110.8 cm/s AV Peak Gradient 4.9 mmHg LVOT Peak Velocity 98.9 cm/s LVOT Peak Gradient 3.9 mmHg LVOT Velocity Time Integral 21.3 cm LVOT Stroke Volume 65.9 cm??? LVOT Stroke Volume Index 29.1 ml/m??? LVOT Cardiac Index 1367.1 cm???/min???m??? AV Area Cont Eq pk 2.8 cm??? MV Peak Velocity 83.0 cm/s MV Peak Gradient 2.8 mmHg MV Mean Velocity 38.4 cm/s MV Mean Gradient 0.8 mmHg MV Velocity Time Integral 37.3 cm Mitral E Point Velocity 70.2 cm/s Mitral A Point Velocity 58.4 cm/s Mitral E to A Ratio 1.2 MV Deceleration Time 301.7 ms TR Peak Velocity 222.8 cm/s TR Peak Gradient 19.9 mmHg Right Ventricular Systolic Press 24.9 mmHg PV Peak Velocity 77.5 cm/s PV Peak Gradient 2.4 mmHg FINDINGS Left Ventricle Normal LV size. Mild concentric LVH. Left ventricular ejection fraction is estimated at 60-65 %. Right Ventricle Normal right ventricular size. Right Atrium Normal right atrial size. Left Atrium Normal left atrial size. Mitral Valve Structurally normal mitral valve. No mitral stenosis. No mitral regurgitation. Aortic Valve Aortic valve not well visualized. No aortic stenosis. Trace AI. Tricuspid Valve Structurally normal tricuspid valve. Trace TR. Pulmonic Valve Pulmonic valve not well visualized. No pulmonic regurgitation. Pericardium Not well visualized however grossly normal. Aorta Normal size aortic root . CONCLUSIONS Technically limited parasternal views. Normal LV size and function Previewed by: Dr. Deion Wong MD (Electronically Signed) Final Date: 30 October 2023 17:54
[2023-10-30 18:19] VITALS: BP 114/72; PULSE 59
[2023-10-31] MEDS ORDERED: HEPARIN SODIUM,PORCINE 10,000 UNIT in SODIUM CHLORIDE 0.9% 1,000 ML IRRIGATION PRN (07:00)
[2023-10-31] MEDS ORDERED: HEPARIN SODIUM,PORCINE (1 ML) 2,500 UNIT in SODIUM CHLORIDE 0.9% 250 ML IRRIGATION PRN (07:00)
[2023-10-31] MEDS ORDERED: ASPIRIN 81 MG PO SCH (09:00)
--- NOTE | 2023-11-02 05:53 | P.DS ---
Providers Date of admission: 10/28/23 20:00 Attending physician: Chiquita Hatch Consults: 10/28/23 19:59 Consult Physician Urgent Consulting Provider: Kaden Mendoza Consult Reason/Comments: chest pain Do you want consulting provider notified?: Yes Primary care physician: Umesh Trujillo Hospital Course: Diagnoses: chest pain,cardiac causesv ruled out. Most likely musculoskeletal. Currently completely resolved History of coronary artery disease status post stent continue with aspirin Hyperlipidemia Hypertension History of asthma, no acute process History of prostate lung cancer per records Hospital course: This is a pleasant 63 years old male with past medical history of coronary artery disease status post stents in 2014 and he follows up with Dr. Mendoza, ex smoker many years ago area Presents because of 2 episodes of chest pain that lasts for a few minutes in the middle of his chest nonradiating fat like sharp 6/10 happened yesterday not necessarily related to shelving this no. Currently his chest pain is 0/10 in his chest pain-free with no other complaints. Patient has been evaluated by silk screen repairer and underwent cardiac cath showing no evidence of in-stent restenosis Patient was cleared for discharge by silk screen repairer. Patient continued to continue with medical treatment. Patient confirmed to me he has aspirin and effient at home , he does not need other prescriptions. Problems and management plan were discussed with the patient and he verbalized understanding and acceptance Patient was found stable and can be discharged home in guarded prognosis however he needs follow-up as an outpatient. Patient was instructed to follow up with PCP Dr. Jacob Galicia within one week and patient agrees Patient was instructed to follow up with his silk screen repairer in 1-2 weeks after discharge and he agrees to call and make appointments Physical exam Gen: patient is a AAOx3, no distress CVS: S1-S2, RRR, no murmur Lungs: B/L CTA, no wheezing Abdomen: soft, no distention, no tenderness, positive bowel sounds Extremity: no leg edema or induration Time spent more than 35 minutes Patient Condition at Discharge: Stable Plan - Discharge Summary New Discharge Prescriptions: New Isosorbide Mononitrate ER [Imdur] 30 mg PO DAILY #30 tab Continue amLODIPine [Norvasc] 5 mg PO DAILY Esomeprazole Magnesium [NexIUM] 20 mg PO BID Metoprolol Tartrate [Lopressor] 25 mg PO BID Atorvastatin [Lipitor] 80 mg PO HS Tamsulosin [Flomax] 0.4 mg PO HS Aspirin 81 mg PO DAILY #30 tab Discharge Medication List Atorvastatin [Lipitor] 80 mg PO HS 03/05/18 [History] Esomeprazole Magnesium [NexIUM] 20 mg PO BID 03/05/18 [History] Metoprolol Tartrate [Lopressor] 25 mg PO BID 03/05/18 [History] amLODIPine [Norvasc] 5 mg PO DAILY 03/05/18 [History] Tamsulosin [Flomax] 0.4 mg PO HS 10/28/23 [History] Aspirin 81 mg PO DAILY #30 tab 10/30/23 [Rx] Isosorbide Mononitrate ER [Imdur] 30 mg PO DAILY #30 tab 10/30/23 [Rx] Follow up Appointment(s)/Referral(s): Umesh Trujillo MD [Primary Care Provider] - 1-2 days Abilio Hart MD [STAFF PHYSICIAN] - 1 Week Patient Instructions/Handouts: Moderate Sedation (DC), After Radial Heart Catheterization (GEN) Activity/Diet/Wound Care/Special Instructions: No driving for two days Ok to shower tomorrow but no baths, pools, lakes, doing dishes by hand for five days. Signs of infection IE: fever, rash, drainage from puncture site, swelling go to ER/doctor for immediate evaluation. Avoid using right wrist/hand to bend, flex, lift greater than 5 lbs for five days. For Heavy Bleeding of puncture site apply firm direct pressure and return to ER. Do not attempt to drive self. low sodium/low fat diet medications as directed by Cardiologists Discharge Disposition: HOME SELF-CARE
== END 2023-10-30 18:07 | disposition home or self-care (01) ==
LOC: EC 17:00 → 6NMEDSUR 20:00
PROVIDERS: ADMIT Hospitalist; ATTEND Hospitalist
DX: R07.89 Other chest pain (principal); I25.10 Atherosclerotic heart disease of native coronary artery without angina pectoris; R00.1 Bradycardia, unspecified; K21.9 Gastro-esophageal reflux disease without esophagitis; E78.5 Hyperlipidemia, unspecified; I10 Essential (primary) hypertension; J45.909 Unspecified asthma, uncomplicated; I25.2 Old myocardial infarction; Z85.118 Personal history of other malignant neoplasm of bronchus and lung; Z85.46 Personal history of malignant neoplasm of prostate; Z87.891 Personal history of nicotine dependence; Z95.5 Presence of coronary angioplasty implant and graft; Z79.02 Long term (current) use of antithrombotics/antiplatelets; Z79.82 Long term (current) use of aspirin; Z79.899 Other long term (current) drug therapy
CPT/HCPCS: 96372; 99285; 36415; 93005; 93458; 83880; 80053 ×2; 83735; 84484 ×2; 85025 ×2; 85610; 85730; 71046; G0378 ×4; C8929; C1769 ×2; C1894; J1644 ×2; J2001; Q9957; Q9967; J3010; 93306

== ENCOUNTER 2024-12-02 14:08 | Emergency (ER) | payer MEDICARE, OTHER ==
[2024-12-02 14:18] VITALS: BP 105/70; PULSE 89; RESP 18; TEMP 98
--- NOTE | 2024-12-02 14:44 | ED ---
SOB HPI - General Chief Complaint: Shortness of Breath Stated Complaint: flu a+, chest pain Time Seen by Provider: 12/02/24 14:38 Source: patient, RN notes reviewed Mode of arrival: ambulatory Limitations: no limitations - History of Present Illness Initial Comments: Quick Note: This is a 64-year-old male who presents to the emergency department for chest pain, shortness of breath, and dizziness. He was diagnosed with influenza a few days ago. Reports a history of heart attacks with LAD stent placement. MD Complaint: shortness of breath, chest pain - Related Data Home Medications Medication Instructions Recorded Confirmed Atorvastatin [Lipitor] 80 mg PO HS 03/05/18 10/28/23 Esomeprazole Magnesium [NexIUM] 20 mg PO BID 03/05/18 10/28/23 Metoprolol Tartrate [Lopressor] 25 mg PO BID 03/05/18 10/28/23 amLODIPine [Norvasc] 5 mg PO DAILY 03/05/18 10/28/23 Tamsulosin [Flomax] 0.4 mg PO HS 10/28/23 10/28/23 Previous Rx's Medication Instructions Recorded Aspirin 81 mg PO DAILY #30 tab 10/30/23 Isosorbide Mononitrate ER [Imdur] 30 mg PO DAILY #30 tab 10/30/23 Allergies Allergy/AdvReac Type Severity Reaction Status Date / Time No Known Allergies Allergy Verified 12/02/24 14:18 Review of Systems ROS Statement: Those systems with pertinent positive or pertinent negative responses have been documented in the HPI. ROS Other: All systems not noted in ROS Statement are negative. Past Medical History Past Medical History: Chest Pain / Angina, GERD/Reflux, Hearing Disorder / Deafness, Myocardial Infarction ([place]) Additional Past Medical History / Comment(s): hiatal hernia,deaf rt ear Last Myocardial Infarction Date:: 2014 History of Any Multi-Drug Resistant Organisms: None Reported Past Surgical History: Heart Catheterization With Stent Additional Past Surgical History / Comment(s): heart stent Past Anesthesia/Blood Transfusion Reactions: Motion Sickness Additional Past Anesthesia/Blood Transfusion Reaction / Comment(s): no hx general anesthesia,vertigo Date of Last Stent Placement:: 2014 Past Psychological History: No Psychological Hx Reported Smoking Status: Former smoker Past Alcohol Use History: None Reported Past Drug Use History: None Reported - Past Family History Father Additional Family Medical History / Comment(s): hiatal hernia General Exam - General Exam Comments Initial Comments: Visual Physical Exam Vital signs reviewed General: Well-appearing, nontoxic, no acute distress. Head: Normocephalic, atraumatic Eyes: PERRLA, EOMI ENT: Airway patent Chest: Nonlabored breathing Skin: No visual rash, normal skin tone Neuro: Alert and oriented 3 Musculoskeletal: No gross abnormalities Limitations: no limitations Course Vital Signs 12/02/24 14:15 Temperature 98.0 F Pulse Rate 89 Respiratory 18 Rate Blood Pressure 105/70 O2 Sat by Pulse 98 Oximetry Medical Decision Making - Medical Decision Making I performed the QuickNote portion of this chart. Signed Patricia Griffin PA-C. Patient left AMA from the waiting room prior to full evaluation as well as completion and review of any ordered testing. - Lab Data Result diagrams: 12/02/24 14:28 12/02/24 14:28 Lab Results 12/02/24 12/02/24 12/02/24 Range/Units 14:28 14:28 14:28 WBC 6.0 (3.8-10.6) k/uL RBC 5.64 (4.30-5.90) m/uL Hgb 16.3 (13.0-17.5) gm/dL Hct 49.1 (39.0-53.0) % MCV 87.2 (80.0-100.0) fL MCH 28.9 (25.0-35.0) pg MCHC 33.1 (31.0-37.0) g/dL RDW 12.9 (11.5-15.5) % Plt Count 128 L (150-450) k/uL MPV 8.5 Neutrophils % 70 % Lymphocytes % 15 % Monocytes % 13 % Eosinophils % 0 % Basophils % 0 % Neutrophils # 4.2 (1.3-7.7) k/uL Lymphocytes # 0.9 L (1.0-4.8) k/uL Monocytes # 0.8 (0-1.0) k/uL Eosinophils # 0.0 (0-0.7) k/uL Basophils # 0.0 (0-0.2) k/uL PT 10.5 (10.0-12.5) sec INR 0.9 (<1.2) APTT 22.9 (22.0-30.0) sec Sodium 138 (137-145) mmol/L Potassium 4.7 (3.5-5.1) mmol/L Chloride 101 (98-107) mmol/L Carbon Dioxide 29 (22-30) mmol/L Anion Gap 8 mmol/L BUN 30 H (9-20) mg/dL Creatinine 1.41 H (0.66-1.25) mg/dL Est GFR (CKD-EPI)AfAm 60 (>60 ml/min/1.73 sqM) Est GFR (CKD-EPI)NonAf 52 (>60 ml/min/1.73 sqM) Glucose 117 H (74-99) mg/dL Calcium 9.1 (8.4-10.2) mg/dL Total Bilirubin 0.9 (0.2-1.3) mg/dL AST 30 (17-59) U/L ALT 40 (4-49) U/L Alkaline Phosphatase 60 (38-126) U/L Troponin I (0.000-0.034) ng/mL Total Protein 6.8 (6.3-8.2) g/dL Albumin 4.1 (3.5-5.0) g/dL 12/02/24 Range/Units 14:28 WBC (3.8-10.6) k/uL RBC (4.30-5.90) m/uL Hgb (13.0-17.5) gm/dL Hct (39.0-53.0) % MCV (80.0-100.0) fL MCH (25.0-35.0) pg MCHC (31.0-37.0) g/dL RDW (11.5-15.5) % Plt Count (150-450) k/uL MPV Neutrophils % % Lymphocytes % % Monocytes % % Eosinophils % % Basophils % % Neutrophils # (1.3-7.7) k/uL Lymphocytes # (1.0-4.8) k/uL Monocytes # (0-1.0) k/uL Eosinophils # (0-0.7) k/uL Basophils # (0-0.2) k/uL PT (10.0-12.5) sec INR (<1.2) APTT (22.0-30.0) sec Sodium (137-145) mmol/L Potassium (3.5-5.1) mmol/L Chloride (98-107) mmol/L Carbon Dioxide (22-30) mmol/L Anion Gap mmol/L BUN (9-20) mg/dL Creatinine (0.66-1.25) mg/dL Est GFR (CKD-EPI)AfAm (>60 ml/min/1.73 sqM) Est GFR (CKD-EPI)NonAf (>60 ml/min/1.73 sqM) Glucose (74-99) mg/dL Calcium (8.4-10.2) mg/dL Total Bilirubin (0.2-1.3) mg/dL AST (17-59) U/L ALT (4-49) U/L Alkaline Phosphatase (38-126) U/L Troponin I <0.012 (0.000-0.034) ng/mL Total Protein (6.3-8.2) g/dL Albumin (3.5-5.0) g/dL Disposition Clinical Impression: Chest pain Disposition: LEFT AGAINST MEDICAL ADVICE Referrals: Umesh Trujillo MD [Primary Care Provider] - 1-2 days
[2024-12-02 14:47] LABS: Basophils % (A) 0 %; Eosinophils % (A) 0 %; HCT 49.1 % (39.0-53.0); HGB 16.3 gm/dL (13.0-17.5); Lymphocytes # (A) 0.9 k/uL (1.0-4.8); Lymphocytes % (A) 15 %; MCH 28.9 pg (25.0-35.0); MCHC 33.1 g/dL (31.0-37.0); MCV 87.2 fL (80.0-100.0); Mean Platelet Volume 8.5; Monocytes # (A) 0.8 k/uL (0-1.0); Monocytes % (A) 13 %; Neutrophils # (A) 4.2 k/uL (1.3-7.7); Neutrophils % (A) 70 %; Platelet Count 128 k/uL (150-450); RBC 5.64 m/uL (4.30-5.90); RDW 12.9 % (11.5-15.5)
[2024-12-02 15:55] LABS: INR 0.9 (<1.2); Partial Thromboplastin Time 22.9 sec (22.0-30.0); Prothrombin Time 10.5 sec (10.0-12.5)
[2024-12-02 16:14] LABS: ALT 40 U/L (4-49); AST 30 U/L (17-59); African American GFR (CKD) 60 (>60 ml/min/1.73 sqM); Albumin 4.1 g/dL (3.5-5.0); Alkaline Phosphatase 60 U/L (38-126); Anion Gap 8 mmol/L; Blood Urea Nitrogen 30 mg/dL (9-20); Calcium 9.1 mg/dL (8.4-10.2); Carbon Dioxide 29 mmol/L (22-30); Chloride 101 mmol/L (98-107); Glucose 117 mg/dL (74-99); Non-African American GFR(CKD) 52 (>60 ml/min/1.73 sqM); Potassium 4.7 mmol/L (3.5-5.1); Sodium 138 mmol/L (137-145); Total Bilirubin 0.9 mg/dL (0.2-1.3); Total Protein 6.8 g/dL (6.3-8.2)
== END 2024-12-02 16:03 | disposition left against medical advice (07) ==
LOC: EC 14:08
DX: R07.9 Chest pain, unspecified (principal); Z87.891 Personal history of nicotine dependence; Z53.21 Procedure and treatment not carried out due to patient leaving prior to being seen by health care provider
CPT/HCPCS: 36415; 80053; 84484; 85025; 85610; 85730; 93005; 99284